=== PATIENT | female | born 1960 | race Caucasian/White ===

== ENCOUNTER 2020-01-06 08:46 | Day surgery (SDC) | payer BC ==
[2020-01-06] MEDS ORDERED: Lactated Ringers 1,000 ML IV SCH (09:30)
[2020-01-06] MEDS ORDERED: Lactated Ringers 1,000 ML IV ONE ×2 (09:47→10:23)
[2020-01-06] MEDS ORDERED: MEFOXIN 2 GM PREMIX** 2 GM/50 ML ML IV ONE (09:47)
[2020-01-06] MEDS ORDERED: MEFOXIN 2 GM PREMIX** 2 GM/50 ML ML IV SCH (10:00)
[2020-01-06] MEDS ORDERED: Versed 2 MG/2 ML Injection ONE ×2 (10:10→11:05)
[2020-01-06] MEDS ORDERED: Sensorcaine 0.25% 10 ML ONE ×2 (10:23)
[2020-01-06] MEDS ORDERED: SUBLIMAZE 100 MCG/2 ML ONE ×2 (11:20→12:30)
[2020-01-06] MEDS ORDERED: Zemuron 100 MG/10 ML ONE (11:20)
[2020-01-06] MEDS ORDERED: TORAdol 30 mg Injection ONE (11:20)
[2020-01-06] MEDS ORDERED: DIPRIVAN 200 MG/20 ML IV ONE (11:20)
[2020-01-06] MEDS ORDERED: Xylocaine-Mpf 2% 5 Ml Vial ONE (11:20)
[2020-01-06] MEDS ORDERED: Zofran 4 MG/2 ML VIAL ONE ×2 (11:20→12:30)
[2020-01-06] MEDS ORDERED: Decadron 4 MG INJ ONE (11:20)
[2020-01-06] MEDS ORDERED: BRIDION 200MG/2ML IV ONE (11:20)
--- NOTE | 2020-01-06 11:37 | PCM.DCORD ---
- Discharge Disposition: Home, Self-Care Condition: Stable Prescriptions: New Hydrocodone/APAP 5-325 Tab^^^ [[place] 5-325 Tablet^^^] 1 tab PO Q4HPRN PRN #20 tablet MDD 6 PRN Reason: Pain Continue Levocetirizine Dihydrochloride 5 mg PO HS PANTOPRAZOLE 40 mg Tablet [Protonix 40MG Tablet] 40 mg PO QAM Metoprolol Tartrate 25 mg [Lopressor 25MG Tab] 25 mg PO STAT Calcium Carbonate [Tums] 400 mg PO DAILY Alprazolam [Xanax] 0.25 mg PO DAILY PRN PRN Reason: Anxiety Discontinued Aspirin 81 mg PO DAILY Additional Instructions: No lifting, pushing or pulling over 5 pounds. No soaking in water such as bath, hot tub or swimming pool. No driving for one week. Leave dressing on unless instructed otherwise. Notify your doctor if you experience fever, redness, warmth, or pus drainage from the wound, increasing pain, persistent nausea or vomiting, or any other questions that you have. Resume home diet unless otherwise instructed. Follow up with: YUDY MACE MD [ASSOCIATE STAFF] - 1 Week
[2020-01-06] MEDS ORDERED: DILAUDID 2 MG INJECTION ONE (12:39)
[2020-01-06] MEDS ORDERED: Phenergan 25 MG INJ ONE (12:58)
--- NOTE | 2020-01-06 13:01 | OP ---
SURGERY DATE/TIME: 01/06/2020 1121 PREOPERATIVE DIAGNOSIS: Chronic cholecystitis with cholelithiasis. POSTOPERATIVE DIAGNOSES: Chronic cholecystitis with cholelithiasis. PROCEDURE: Laparoscopic cholecystectomy. SURGEON: Sal Edwards M.D. ANESTHESIA: General. SPECIMEN: Gallbladder. ESTIMATED BLOOD LOSS: 25. CONDITION: Patient condition stable. COMPLICATIONS: None. HISTORY: The patient is a 59 year-old female with right upper quadrant abdominal pain postprandial, found to have cholelithiasis on evaluation. Risks of infection, bleeding, bile leak, injury to nearby structure, hernia were discussed. She elected to proceed. FINDINGS: Critical view obtained. DESCRIPTION OF PROCEDURE: The patient was brought to the operating room. General anesthesia was induced. She was placed supine with arms out. SCD's were applied on. She was routinely prepped and draped. Time out was performed. Preoperative antibiotic was given. Veress needle was inserted left upper quadrant. Opening pressure was 6. Pneumoperitoneum was established. A 5 mm OPTIVIEW trocar was placed in left upper quadrant. An 11 mm trocar was placed infraumbilically through a prior scar. Two additional 5 mm trocars were placed in the right upper quadrant. Marcaine was injected in all the port sites. The abdomen had been surveyed. There is some mild omental adhesions to her lower midline incision that was away from the field. These were nonpathologic appearing and not lysed. There were omental adhesions to the gallbladder. These were taken down with cautery. Gallbladder was retracted. The cystic duct and cystic artery dissected out with a combination of L-hook cautery, [place] and blunt dissection. Critical view was easily obtained. The cystic duct was taken two down and one up with a 5 mm metal clip household chores. Cystic artery was taken with a 5 mm clip household chores, both were divided. The gallbladder was taken off the liver bed with cautery, placed in specimen bag and removed through an 11 trocar. This was sent to pathology. Trocar was reinserted. Right upper quadrant was again surveyed. A small superficial tear at the falciform peripherally was really hemostatic, just some cautery was applied. There was good hemostasis. The right upper quadrant was irrigated and suctioned. The clips were in good position. There was good hemostasis. The 11 trocar was closed with 0 Vicryl suture passer. The right upper quadrant ports were removed under direct visualization. Left upper quadrant port was used for desufflation and then removed. The skin was closed with 4-0 Vicryl suture. Steri-Strips and sterile dressings applied. All counts were correct. The patient tolerated the procedure well with plans for extubation.
[2020-01-06 15:45] VITALS: BP 128/76; PULSE 86; O2SAT 95
== END 2020-01-06 15:50 | disposition home or self-care (01) ==
LOC: SDC 08:46
PROVIDERS: ATTEND Surgery
DX: K80.10 Calculus of gallbladder with chronic cholecystitis without obstruction (principal)
CPT/HCPCS: 88304; J0694; J1100; J1170; J1885; J2250; J2405; J2550; J2704; J3010

== ENCOUNTER 2020-08-06 15:51 | Emergency (ER) | payer BC ==
--- NOTE | 2020-08-06 16:38 | ERPHSYRPT ---
- History of Present Illness Time Seen by Provider: 08/06/20 15:59 Source: patient Exam Limitations: no limitations Patient Subjective Stated Complaint: PT states "I stumbled on one of my steps and hit my face and head. My left arm hurts too." Triage Nursing Assessment: Pt presented alert and oriented X 3, skin pwd. Pt ambulates with an upright steady gait, able to speak in clear full sentences. Pt nose has small laceration to bridge and abrasion to tip of nose, small hematoma and swelling noted to left side of head. Physician History: 59 years old female presented in the ER with chief complaint of fall. Patient reports chief missed 1 step and felt face forward on concrete. She hit her nose and left side of head. No loss of consciousness. She had a bleeding from small laceration at the bridge of nose which is stopped with applying pressure. She is complaining of dull aching to sharp mild to moderate intensity headache especially on the left side without any blurry vision. She denies any numbness tingling or focal weakness. She was able to get up and walk. She is also complaining of mild pain in the left lateral side of the neck with movement. Denies any chest pain palpitations or shortness of breath. Denies any dizziness or lightheadedness before or after the fall. No difficulty speech or visual symptoms. Occurred: just prior to arrival Reason for Fall: tripped Injuries/Pain Location: head, face Loss of Consciousness: no loss of consciousness Quality: sharpness Severity of Pain-Max: moderate Severity of Pain-Current: mild Modifying Factors: Improves With: cold therapy. Worsens With: movement Associated Symptoms (Fall): headache, neck pain, No abdominal pain, No confusion, No chest pain, No dizziness, No muscle spasms, No seizures, No shortness of breath, No trouble walking, No vision changes Allergies/Adverse Reactions: prednisolone Allergy (Severe, Verified 08/06/20 16:00) Swelling erythromycin base Adverse Reaction (Intermediate, Verified 01/06/20 09:22) Nausea Sulfa (Sulfonamide Antibiotics) Adverse Reaction (Intermediate, Verified 01/06/20 09:22) Nausea Home Medications: Calcium Carbonate [Tums] 400 mg PO DAILY 01/04/20 [History] Levocetirizine Dihydrochloride 5 mg PO HS 01/04/20 [History] Metoprolol Tartrate 25 mg [Lopressor 25MG Tab] 25 mg PO STAT 01/04/20 [History] PANTOPRAZOLE 40 mg Tablet [Protonix 40MG Tablet] 40 mg PO QAM 01/04/20 [History] Alprazolam [Xanax] 0.25 mg PO DAILY PRN 01/06/20 [History] Aspirin EC 81 mg [Ecotrin 81 mg] 81 mg PO DAILY 01/06/20 [History] Hx Tetanus, Diphtheria Vaccination/Date Given: No Hx Influenza Vaccination/Date Given: Yes Hx Pneumococcal Vaccination/Date Given: No Immunizations Up to Date: Yes Travel Risk - International Travel Have you traveled outside of the country in past 3 weeks: No - Coronavirus Screening Are you exhibiting any of the following symptoms?: No Close contact with a COVID-19 positive Pt in past 14-21 Days: No - Review of Systems Constitutional: No Symptoms Eyes: No Symptoms Ears, Nose, & Throat: Other Respiratory: No Symptoms (Nose pain with a laceration) Cardiac: No Symptoms Abdominal/Gastrointestinal: No Symptoms Genitourinary Symptoms: No Symptoms Musculoskeletal: Injury Skin: Skin Lesions Neurological: Headache Psychological: Anxiety Endocrine: No Symptoms, Excessive Sweating Immunological/Allergic: No Symptoms - Past Medical History Pertinent Past Medical History: Yes Neurological History: No Pertinent History ENT History: No Pertinent History Cardiac History: Angina, Hypertension Respiratory History: No Pertinent History Endocrine Medical History: No Pertinent History Musculoskeletal History: No Pertinent History GI Medical History: GERD, Gallbladder Disease, Ulcer History: No Pertinent History Psycho-Social History: Anxiety Female Reproductive Disorders: No Pertinent History - Past Surgical History Past Surgical History: Yes Neuro Surgical History: No Pertinent History Cardiac: No Pertinent History Respiratory: No Pertinent History Gastrointestinal: No Pertinent History Genitourinary: No Pertinent History Musculoskeletal: No Pertinent History Female Surgical History: Hysterectomy, Dilation & Curettage, Section Other Surgical History: D&C x 2, C section x 2 - Social History Smoking Status: Former smoker Exposure to second hand smoke: No Drug Use: none Patient Lives Alone: No - Female History Hx Now: No - Nursing Vital Signs Nursing Vital Signs: Initial Vital Signs Temperature 98.5 F 08/06/20 15:51 Pulse Rate 92 H 08/06/20 15:51 Respiratory Rate 18 08/06/20 15:51 O2 Sat by Pulse Oximetry 98 08/06/20 15:51 Pain Scale Pain Intensity 6 - [place] Coma Score Best Eye Response ([place]): (4) open spontaneously Best Verbal Response (Tye): (5) oriented Best Motor Response (Tye): (6) obeys commands Tye Total: 15 - Physical Exam General Appearance: no apparent distress, alert, anxiety Head Injury: contusions, swelling, tenderness (Left forehead and parietotemporal area with hematoma.), No active bleeding, No White's Sign, No raccoon eyes Eye Exam: PERRL/EOMI, eyes nml inspection ENT Exam: airway nml, other (Superficial laceration almost 1.3 centimeter bridge of nose with no active bleeding or spurting.) Neck Exam: supple, trachea midline, full range of motion, normal alignment, nor mal inspection, tender lateral (Left lateral muscular) Respiratory/Chest Exam: normal breath sounds, respiratory distress, No chest tenderness Cardiovascular Exam: normal heart sounds, regular rate/rhythm Gastrointestinal Exam: soft, normal bowel sounds, No tenderness Back Exam: normal inspection, normal range of motion, No CVA tenderness Extremity Exam: normal inspection, normal range of motion, capillary refill <3 sec, pelvis stable Neurologic Exam: alert, oriented x 3, cooperative, invoice coder II-XII nml as tested, nml cerebellar function, nml station & gait, sensation nml, No motor deficits, No sensory deficit Skin Exam: normal color SpO2 Interpretation: normal SpO2: 98 O2 Delivery: Room Air Procedures - Laceration/Wound Repair Face Time of Procedure: 17:18 Wound Location: face (Nose bridge ) Wound Length (cm): 1.3 Wound's Depth, Shape: superficial Wound Explored: clean Irrigated: Yes Hibiclens Prep: Yes Wound Repaired With: Steri-strips, Dermabond Number of Sutures: 2 (steristrips ) Sterile Dressing Applied?: No Splint Applied?: No Ordered Tests: Active Orders 24 hr Category Date Time Status CERVICAL SPINE WO CONTRAST [CT] Stat Exams 08/06/20 16:37 Taken FACIAL BONES WO CONTRAST [CT] Stat Exams 08/06/20 16:09 Taken HEAD WITHOUT CONTRAST [CT] Stat Exams 08/06/20 16:09 Taken HUMERUS Stat Exams 08/06/20 17:28 Taken Medication Summary Discontinued Medications Generic Name Dose Route Start Last Admin Trade Name Pedro PRN Reason Stop Dose Admin Diphtheria/Tetanus/Acell Pertussis 0.5 ml 08/06/20 17:18 08/06/20 17:27 Adacel Vial IM 08/06/20 17:19 0.5 ml .ONCE ONE Administration Diphtheria/Tetanus/Acell Pertussis Confirm 08/06/20 17:22 Adacel Vial Administered 08/06/20 17:23 Dose 0.5 ml IM .STK-MED ONE Oxycodone/Acetaminophen 1 tab 08/06/20 17:16 08/06/20 17:25 Percocet Tablet 5/325mg PO 08/06/20 17:17 1 tab STAT ONE Administration Oxycodone/Acetaminophen Confirm 08/06/20 17:22 Percocet Tablet 5/325mg Administered 08/06/20 17:23 Dose 1 tab .ROUTE .STK-MED ONE - Progress Progress: improved, pain not gone completely Progress Note: 08/06/20 17:20 59 years old is evaluated for fall with injury to left forehead and nose. I have obtained CT head neck and facial bone which are negative for any acute findings. Patient CT head did show some small foreign body in the left frontal scalp which I could not located by palpation but I believe when she fell small piece of rock went in.. Nasal laceration is repaired. She is advised to follow-up outpatient with primary care if she is has persistent pain in the left forehead for further evaluation of foreign body removal. She is given oxycodone for symptomatic relief. Tetanus is updated. On reevaluation patient was complaining of some soreness in the left arm and x-rays humerus did not show any obvious fracture reviewed by me, official report is pending. I believe patient has facial/scalp contusion, recommended supportive care and outpatient follow-up. Discussed signs symptoms of head injury needing return to ER which she seems understanding. Counseled pt/family regarding: diagnosis, need for follow-up, rad results - Departure Departure Disposition: Home Clinical Impression: Scalp contusion Qualifiers: Encounter type: initial encounter Qualified Code(s): S00.03XA - Contusion of scalp, initial encounter Nasal laceration Qualifiers: Encounter type: initial encounter Qualified Code(s): S01.21XA - Laceration without foreign body of nose, initial encounter Fall Qualifiers: Encounter type: initial encounter Qualified Code(s): W19.XXXA - Unspecified fall, initial encounter Condition: Stable Critical Care Time: No Referrals: MONICA CHAPMAN MD [Primary Care Provider] - (1-2 days for re evaluation ) Instructions: Preventing Falls, Minor Head Injury (DC) Additional Instructions: Apply ice, use Tylenol as needed for headache/pain. Follow-up with primary care physician for reevaluation. Watch signs symptoms of head injury needing return to ER. Stay with a responsible person for next 48 hours. Avoid being around machinery/driving next 48 hours.
[2020-08-06 17:06] VITALS: BP 165/77
[2020-08-06] MEDS ORDERED: PERCOCET TABLET 5/325MG PO ONE (17:16)
[2020-08-06] MEDS ORDERED: Adacel Vial IM ONE ×2 (17:18→17:22)
[2020-08-06] MEDS ORDERED: PERCOCET TABLET 5/325MG ONE (17:22)
[2020-08-06 18:04] VITALS: PULSE 76
[2020-08-06 18:05] VITALS: O2SAT 98
--- NOTE | 2020-08-06 19:12 | XRAY ---
Indication: Pain following fall. Comparison: None 2 view left humerus demonstrates 5-6 mm ossification adjacent to greater tuberosity either degenerative versus sequela old injury/inflammation. No other bony, articular, or soft tissue abnormalities.
--- NOTE | 2020-08-06 19:15 | XRAY ---
Indication: Pain following fall. Multiple contiguous axial images obtained through the cervical spine. Sagittal and coronal reformatted images obtained. Comparison: None. Axial images are negative for acute fracture, suspicious bony lesions, or spinal canal stenosis. Minimal C3-C4 endplate spurring and minimal/mild multilevel bilateral degenerative facet hypertrophy. Sagittal and coronal reformatted images demonstrates lordotic straightening, positional versus paraspinal spasm. Vertebral body heights/disc spaces maintained. No acute compression fracture, subluxation, or jumped facet. Normal appearing craniocervical junction. Thyroid gland demonstrates mild heterogeneity. Remaining visualized noncontrasted soft tissues including lung apices are unremarkable. Impression: 1. Lordotic straightening, positional versus paraspinal spasm. 2. Negative acute fracture/subluxation. 3. Incidental mild multilevel degenerative changes. Also mild heterogeneous thyroid gland better evaluated with sonogram if clinically warranted. Comment: Preliminary interpretation was made by [facility]. No critical discrepancy.
--- NOTE | 2020-08-06 19:16 | XRAY ---
Indication: Left frontal pain following fall. Multiple contiguous axial images obtained through the head without contrast. Comparison: April 11, 2011. Normal appearing brain parenchyma, ventricles, and bony calvarium. Small left frontal scalp hematoma. Tiny fluid leveling right sphenoid sinus. Remaining visualized paranasal sinuses and mastoid air cells are clear. Impression: Left frontal scalp hematoma and right sphenoid sinus disease. Remaining CT head without contrast exam is normal. Comment: Preliminary interpretation was made by [facility]. No critical discrepancy.
--- NOTE | 2020-08-06 19:19 | XRAY ---
Indication: Nose pain following fall. Multiple contiguous axial images obtained through the facial bones. Sagittal and coronal reformatted images obtained. Comparison: None. No acute fracture, suspicious bony lesions, or radiopaque foreign body. Orbits including roof, shaw, and floors are intact. Tiny fluid leveling right sphenoid sinus. Remaining paranasal sinuses and nasal passages are clear. Patient is nearly edentulous. Minimal midline frontal scalp soft tissue swelling/hematoma. Remaining visualized osseous structures and noncontrast soft tissues are unremarkable. Impression: 1. Negative acute fracture. 2. Incidental right sphenoid sinus disease and minimal frontal scalp soft tissue swelling/hematoma. Comment: Preliminary interpretation was made by [facility]. No critical discrepancy.
== END 2020-08-06 18:05 | disposition home or self-care (01) ==
LOC: ED 15:51
DX: S00.03XA Contusion of scalp, initial encounter (principal); S01.21XA Laceration without foreign body of nose, initial encounter; W10.8XXA Fall (on) (from) other stairs and steps, initial encounter; S00.33XA Contusion of nose, initial encounter; R51.9 Headache, unspecified; M54.2 Cervicalgia; Z79.899 Other long term (current) drug therapy; I10 Essential (primary) hypertension
CPT/HCPCS: 12011; 70450; 70486; 72125; 73060; 90471; 90715; 99284; A9270-GY